=== PATIENT | female | born 1965 | race Caucasian/White ===

== ENCOUNTER → 2024-09-05 | Outpatient (CLI) | payer BC, MEDICARE ==
[2024-09-09 15:28] LABS: O-DESMETHYLTRAMADOL,URN, QUANT >10000 ng/mL; TRAMADOL, URN, QUANT >10000 ng/mL
== END ==
LOC: LAB SHORT 15:12 → LAB 15:12
PROVIDERS: Family Medicine
DX: Z51.81 Encounter for therapeutic drug level monitoring (principal); Z79.899 Other long term (current) drug therapy
CPT/HCPCS: G0480